=== PATIENT | male | born 1970 | race Asian ===

== ENCOUNTER 2019-01-05 10:38 | Outpatient (CLI) | payer BC ==
[2019-01-05 11:15] LABS: PLATELET COUNT 336 K/uL (142-355)
[2019-01-05 11:56] LABS: POTASSIUM 3.3 mmol/L (3.6-5.2)
== END 2019-01-05 19:41 | disposition home or self-care (01) ==
LOC: LABW 10:38
PROVIDERS: Physician Assistant
DX: I10 Essential (primary) hypertension (principal); R35.1 Nocturia
CPT/HCPCS: 36415; 80053; 80061; 84153; 84439; 84443; 85027

== ENCOUNTER 2020-08-16 10:09 | Outpatient (CLI) | payer BC ==
[2020-08-16 10:59] LABS: PLATELET COUNT 266 K/uL (142-355)
[2020-08-16 11:21] LABS: POTASSIUM 3.5 mmol/L (3.6-5.2)
== END 2020-08-16 19:24 | disposition home or self-care (01) ==
LOC: LABW 10:09
PROVIDERS: Nurse Practitioner
DX: I10 Essential (primary) hypertension (principal)
CPT/HCPCS: 36415; 80053; 80061; 82306; 84153; 85027